=== PATIENT | male | born 1940 | race Caucasian/White ===

== ENCOUNTER 2016-11-20 09:42 | Emergency (ER) | payer MEDICARE ==
[~2016-11-20] VITALS: Ht 185.4 cm; Wt 109.0 kg
[2016-11-20 09:44] VITALS: BP 154/89; PULSE 70; RESP 24; TEMP 97.5; O2SAT 94
--- NOTE | 2016-11-20 10:12 | PD ---
HPI Chief Complaint: Dizziness Time Seen by Provider: 10:12 Travel History International Travel<30 days: No Contact w/Intl Traveler<30days: No Traveled to known affect area: No History of Present Illness HPI 76-year-old male came to the emergency room brought by his with history of sudden onset dizziness since yesterday. Patient says initially when it happened he became very nauseous and vomited once. He went to bed which subsided a little bit. He noticed that he was more comfortable laying on either side but when he laid flat or bent his head down the dizziness worsened. This morning he woke up and the dizziness was still there. He has been nauseous and dry heaved couple times. His decided to bring him into the emergency room. They are from [place] and down here for vacation. They are supposed to leave today but his was very concerned about his symptoms. Patient says there is slight headache which is tolerable. He had dizziness about 10 years ago. No history of chest pain, vision change or any hearing issues. No history of syncopal episode or a fall. He feels little disbalanced walking which makes his nausea worse. Vital signs were relatively stable. [facility]LY [facility] Past Medical History Narrative Medical List of his past medical, surgical, social and family history is reviewed from the nursing note. Social History Tobacco Use: No Allergies-Medications (Allergen,Severity, Reaction): Coded Allergies: Sulfa (Verified Allergy, Unknown, 11/20/16) Comments List of his allergies reviewed from the nursing note. Reported Meds & Prescriptions Reported Meds & Active Scripts Active Zofran Odt (Ondansetron Odt) 4 Mg Tab 4 Mg SL Q6HR PRN Meclizine (Meclizine HCl) 25 Mg Chew 25 Mg CHEW TID Narrative Medication Patient has not brought his list of medications with him and does not remember what he is on. He knows that he is on 2 blood pressure medication and a cholesterol medication. Review of Systems Except as stated in HPI: all other systems reviewed are Neg Physical Exam Narrative GENERAL: Awake, alert, no obvious distress SKIN: Focused skin assessment warm/dry. HEAD: Atraumatic. Normocephalic. EYES: Pupils equal and round. No scleral icterus. No injection or drainage. No nystagmus ENT: No nasal bleeding or discharge. Mucous membranes pink and moist. NECK: Trachea midline. No JVD. CARDIOVASCULAR: Regular rate and rhythm. No murmur appreciated. RESPIRATORY: No accessory muscle use. Clear to auscultation. Breath sounds equal bilaterally. GASTROINTESTINAL: Abdomen soft, non-tender, nondistended. Hepatic and splenic margins not palpable. MUSCULOSKELETAL: No obvious deformities. No clubbing. No cyanosis. No edema. NEUROLOGICAL: Awake and alert. No obvious cranial nerve deficits. Motor grossly within normal limits. Normal speech. PSYCHIATRIC: Appropriate mood and affect; insight and judgment normal. Data Data Last Documented VS Vital Signs Date Time Temp Pulse Resp B/P Pulse Ox O2 Delivery O2 Flow Rate FiO2 11/20/16 14:30 63 16 148/77 96 11/20/16 12:10 Room Air 11/20/16 09:44 97.5 Orders Electrocardiogram (11/20/16 10:21) Complete Blood Count With Diff (11/20/16 10:21) Basic Metabolic Panel (Bmp) (11/20/16 10:21) Troponin I (11/20/16 10:21) Urinalysis - C+S If Indicated (11/20/16 10:21) Ct Brain W/O Iv Contrast(Rout) (11/20/16 10:21) Ecg Monitoring (11/20/16 10:21) Iv Access Insert/Monitor (11/20/16 10:21) Oximetry (11/20/16 10:21) Mri Brain W&W/O Contrast (11/20/16 ) Mra Brain W/O Contrast (Cow) (11/20/16 ) Meclizine (Antivert) (11/20/16 10:30) Ondansetron Inj (Zofran Inj) (11/20/16 10:30) Sodium Chlorid 0.9% 500 Ml Inj (Ns 500 M (11/20/16 10:30) Sodium Chlorid 0.9% 500 Ml Inj (Ns 500 M (11/20/16 11:45) Gadodiamide Pf Inj (Omniscan Pf Inj) (11/20/16 13:17) Labs Laboratory Tests Test 11/20/16 10:50 White Blood Count 10.0 TH/MM3 Red Blood Count 5.48 MIL/MM3 Hemoglobin 15.8 GM/DL Hematocrit 48.8 % Mean Corpuscular Volume 89.1 FL Mean Corpuscular Hemoglobin 28.8 PG Mean Corpuscular Hemoglobin 32.3 % Concent Red Cell Distribution Width 13.8 % Platelet Count 167 TH/MM3 Mean Platelet Volume 8.4 FL Neutrophils (%) (Auto) 80.0 % Lymphocytes (%) (Auto) 11.3 % Monocytes (%) (Auto) 7.4 % Eosinophils (%) (Auto) 0.9 % Basophils (%) (Auto) 0.4 % Neutrophils # (Auto) 8.0 TH/MM3 Lymphocytes # (Auto) 1.1 TH/MM3 Monocytes # (Auto) 0.7 TH/MM3 Eosinophils # (Auto) 0.1 TH/MM3 Basophils # (Auto) 0.0 TH/MM3 CBC Comment DIFF FINAL Differential Comment Urine Color YELLOW Urine Turbidity CLEAR Urine pH 6.5 Urine Specific [place] 1.023 Urine Protein TRACE mg/dL Urine Glucose (UA) 1000 mg/dL Urine Ketones TRACE mg/dL Urine Occult Blood NEG Urine Nitrite NEG Urine Bilirubin NEG Urine Urobilinogen LESS THAN 2.0 MG/DL Urine Leukocyte Esterase NEG Urine RBC 1 /hpf Urine WBC 2 /hpf Urine Squamous Epithelial <1 /hpf Cells Urine Hyaline Casts 1 /lpf Urine Mucus FEW /lpf Microscopic Urinalysis Comment CATH-CULT NOT IND Sodium Level 141 MEQ/L Potassium Level 3.9 MEQ/L Chloride Level 108 MEQ/L Carbon Dioxide Level 25.3 MEQ/L Anion Gap 8 MEQ/L Blood Urea Nitrogen 27 MG/DL Creatinine 1.33 MG/DL Estimat Glomerular Filtration 53 ML/MIN Rate Random Glucose 130 MG/DL Calcium Level 9.5 MG/DL Troponin I LESS THAN 0.02 NG/ML [facility] Medical Decision Making Medical Screen Exam Complete: Yes Emergency Medical Condition: Yes Medical Record Reviewed: Yes Interpretation(s) Twelve-lead EKG was reviewed by me. Normal sinus rhythm, normal axis, nonspecific ST-T wave changes. Heart rate of 63 bpm. Differential Diagnosis BPV, CVA Narrative Course 11:41 AM blood test results of back and shows dehydration. UA is suggestive of glucosuria. Patient does not have any history of diabetes that he told me. Awaiting for the MRI to be done and resulted. Looked at the CAT scan of his head and did not see any obvious anomaly. Awaiting for the report. Patient was initially given 500 cc of IV fluid bolus, meclizine and Zofran. Awaiting for the blood test results. I've ordered another 500 cc bolus. 1:57 PM the MRA and MRI results of back and within normal limits. I was told by the nurse that patient got up to go to the restroom and while he was standing and urinating he got dizzy and the room started spinning again. He came out of the bathroom pale and diaphoretic and nauseous. Orthostatic vital signs were obtained but they're within normal limit. I am comfortable discharging the patient home. He'll go home with prescription for meclizine. Procedures EKG Prior to Arrival: No Diagnosis Primary Impression: BPV (benign positional vertigo) Qualified Code: H81.13 - BPV (benign positional vertigo), bilateral Additional Impressions: Dehydration Glucosuria Referrals: Primary Care Physician 3 days Additional Instructions: Please follow-up with your primary care as soon as you reach home. Your primary care and needs to order a glucose tolerance test for you since there was a lot of glucose in your urine. Take the medication as per the prescription direction. Do not drive until you've been cleared by your primary care and or neurologist. Return to the ER if the condition worsens or any other new concerns. Med/Other Pt SpecificInfo: Prescription(s) given Scripts Ondansetron Odt (Zofran Odt)4 Mg Tab4 Mg SL Q6HR PRN (Nausea/Vomiting) #20 TAB Ref 0 Prov:Ramirez Zhou MD 11/20/16 Meclizine 25 Mg Chew25 Mg CHEW TID #21 TAB Ref 0 Prov:Ramirez Zhou MD 11/20/16 Disposition: 01 DISCHARGE HOME Condition: Stable Ramirez Zhou MD November 20, 2016 10:12
[2016-11-20] MEDS ORDERED: SODIUM CHLORID 0.9% 500 ML INJ 500 ML IV ONE ×2 (10:30→11:45)
[2016-11-20] MEDS ORDERED: MECLIZINE HCL 25 MG TAB PO ONE (10:30)
[2016-11-20] MEDS ORDERED: ONDANSETRON HCL 4 MG/2 ML VIAL IV PUSH ONE (10:30)
[2016-11-20 11:00] LABS: BASOPHIL % 0.4 % (0.0-2.0); EOSINOPHIL # 0.1 TH/MM3 (0-0.4); EOSINOPHIL % 0.9 % (0.0-4.0); HEMATOCRIT 48.8 % (39.0-51.0); HEMO FLAGS DIFF FINAL; LYMPH % 11.3 % (9.0-44.0); LYMPHOCYTE # 1.1 TH/MM3 (1.0-4.8); MEAN CELL VOLUME 89.1 FL (80.0-100.0); MEAN CORPUSCULAR HEMOGLOBIN 28.8 PG (27.0-34.0); MEAN CORPUSCULAR HGB CONC 32.3 % (32.0-36.0); MONO % 7.4 % (0.0-8.0); PLATELET COUNT 167 TH/MM3 (150-450); RED BLOOD COUNT 5.48 MIL/MM3 (4.50-5.90); RED CELL DISTRIBUTION WIDTH 13.8 % (11.6-17.2)
[2016-11-20 11:12] LABS: BLOOD, URINE NEG (NEG); GLUCOSE,URINE 1000 mg/dL (NEG); HYALINE CAST, URINE 1 /lpf (RARE); KETONE, URINE TRACE mg/dL (NEG); MUCUS URINE FEW /lpf (OCC); NITRITE,URINE NEG (NEG); PH, URINE 6.5 (5.0-8.5); SQUAMOUS EPITHELIAL CELL URINE <1 /hpf (0-5); URINE COLOR YELLOW (YELLW/STRAW)
[2016-11-20 11:13] LABS: COMMENT (UR) CATH-CULT NOT IND; CULTURE IF INDICATED CATH CULTURE NOT IND
[2016-11-20 11:20] LABS: ANION GAP 8 MEQ/L (5-15); BICARBONATE 25.3 MEQ/L (21.0-32.0); BLOOD UREA NITROGEN 27 MG/DL (7-18); CHLORIDE 108 MEQ/L (98-107); GLOMERULAR FILTRATION RATE 53 ML/MIN (>89); POTASSIUM 3.9 MEQ/L (3.5-5.1); SODIUM (NA) 141 MEQ/L (136-145)
--- NOTE | 2016-11-20 11:46 | RADRPT ---
EXAM DATE/TIME: 11/20/2016 11:26 [facility] COMPARISON: No previous studies available for comparison. INDICATIONS : Dizziness and vomiting. RADIATION DOSE: 56.37 CTDIvol (mGy) MEDICAL HISTORY : None SURGICAL HISTORY : None. ENCOUNTER: Initial ACUITY: 1 day PAIN SCALE: 0/10 LOCATION: cranial TECHNIQUE: Multiple contiguous axial images were obtained of the head. Using automated exposure control and adj ustment of the mA and/or kV according to patient size, radiation dose was kept as low as reasonably a chievable to obtain optimal diagnostic quality images. FINDINGS: CEREBRUM: The ventricles are normal for age. No evidence of midline shift, mass lesion, hemorrhage or acute in farction. No extra-axial fluid collections are seen. POSTERIOR FOSSA: The cerebellum and brainstem are intact. The 4th ventricle is midline. The cerebellopontine angle i s unremarkable. EXTRACRANIAL: The visualized portion of the orbits is intact. SKULL: The calvaria is intact. No evidence of skull fracture. CONCLUSION: Unremarkable evaluation. No evidence of acute infarct, hemorrhage, mass or edema. Marlon Farley MD on November 20, 2016 at 11:42 Board Certified Radiologist. This report was verified electronically.
--- NOTE | 2016-11-20 11:58 | EKG ---
Date Performed: 11/20/2016 Time Performed: 10:36:24 PTAGE: 76 years EKG: Sinus rhythm NORMAL ECG NO PREVIOUS TRACING DOCTOR: Tani Schwartz Interpretating Date/Time 11/20/2016 11:57:48
[2016-11-20 12:10] VITALS: BP 146/73; PULSE 62; RESP 16; O2SAT 95
[2016-11-20] MEDS ORDERED: GADODIAMIDE PF 287 MG/ML 20 ML VIAL (for RAD MRI) IV ONE (13:17)
--- NOTE | 2016-11-20 13:21 | RADRPT ---
EXAM DATE/TIME: 11/20/2016 12:24 [facility] COMPARISON: No previous studies available for comparison. INDICATIONS : Dizziness. CONTRAST: 20 cc Omniscan (gadodiamide) IV MEDICAL HISTORY : Hypertension. SURGICAL HISTORY : None. ENCOUNTER: Initial ACUITY: 1 day PAIN SCORE: 0/10 LOCATION: cranial TECHNIQUE: Multiplanar, multisequence MRI of the brain was performed both prior to and following the administrat ion of paramagnetic contrast. FINDINGS: CEREBRUM: The ventricles are normal for age. No evidence of midline shift, mass lesion, hemorrhage or acute in farction. No extraaxial fluid collections are seen. The pituitary gland and suprasellar cistern are normal in configuration. WHITE MATTER: No significant signal abnormalities are seen in the white matter. POSTERIOR FOSSA: The cerebellum and brainstem are intact. The 4th ventricle is midline. The cerebellopontine angle is unremarkable. The cerebellar tonsils are normal in position. DIFFUSION IMAGING: No focal areas of restricted diffusion are seen. No evidence of acute infarction. EXTRACRANIAL: The left maxillary sinus is hypoplastic and contains generalized because of thickening. The visualize d portions of the orbits and paranasal sinuses are unremarkable. POST-CONTRAST: No abnormal areas of parenchymal or dural enhancement. No evidence of blood-brain barrier breakdown. CONCLUSION: Unremarkable evaluation of the brain; no evidence of acute infarct, hemorrhage, mass or edema. No enhancing lesions. 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 Marlon Farley MD on November 20, 2016 at 13:16 Board Certified Radiologist. This report was verified electronically.
--- NOTE | 2016-11-20 13:43 | RADRPT ---
EXAM DATE/TIME: 11/20/2016 12:24 [facility] COMPARISON: MRI BRAIN W & W/O CONTRAST, November 20, 2016, 12:24. INDICATIONS : Dizziness. MEDICAL HISTORY : Hypertension. SURGICAL HISTORY : None. ENCOUNTER: Initial ACUITY: 1 day PAIN SCORE: 0/10 LOCATION: cranial Please note a normal MRA of the brain does not entirely exclude the possibility of a small aneurysm, nor the possibility of distal intracranial vessel disease. TECHNIQUE: 3D time of flight MRA was performed. Source images, multiplanar STS MIP, and 3D volume MIP reconstru ctions were reviewed. FINDINGS: There is excellent visualization of the major intracranial arteries out to the second-order branch ve ssels. origin of the right posterior cerebral artery is noted. There is no evidence for aneurysm, vessel truncation or stenosis, and no evidence for vascular malfo rmation. CONCLUSION: origin of the right posterior cervical artery otherwise unremarkable exam. No evidence of vasculopathy, stenosis, aneurysm or vascular displacement. Marlon Farley MD on November 20, 2016 at 13:38 Board Certified Radiologist. This report was verified electronically.
[2016-11-20 13:50] VITALS: BP_SYST 148; BP_SYST 149; BP_SYST 152; BP_DIAS 74; BP_DIAS 77; BP_DIAS 81; RESP 14; RESP 15
[2016-11-20] MEDS ORDERED: MECL25CH CHEW (13:59)
[2016-11-20] MEDS ORDERED: ZOFR4TAB3 SL (13:59)
[2016-11-20 14:30] VITALS: BP 148/77
== END 2016-11-20 14:43 | disposition home or self-care (01) ==
LOC: NEPD 09:42
DX: H81.10 Benign paroxysmal vertigo, unspecified ear (principal); E86.0 Dehydration; R81 Glycosuria; R11.2 Nausea with vomiting, unspecified; I10 Essential (primary) hypertension; E78.00 Pure hypercholesterolemia, unspecified
CPT/HCPCS: 70450; 70544; 70553; 80048; 81001; 84484; 85025; 93005; 96361; 96374; 99284; A9579; J2405; J7040